=== PATIENT | female | born 2000 | race Caucasian/White ===

== ENCOUNTER 2022-03-03 18:15 | Emergency (ER) | payer MEDICAID ==
[~2022-03-03] VITALS: Ht 172.7 cm; Wt 164.6 kg
[2022-03-03] MEDS ORDERED: ketorolac trometh. 30mg/ml inj. IM ONE (23:00)
[2022-03-03 23:37] VITALS: BP 135/86
== END 2022-03-03 23:39 | disposition home or self-care (01) ==
LOC: ER 18:16
DX: G43.909 Migraine, unspecified, not intractable, without status migrainosus (principal)
CPT/HCPCS: 96372; 99283; J1885